=== PATIENT | female | born 1930 | race Caucasian/White ===

== ENCOUNTER 2018-02-07 10:04 | Observation (INO) | payer OTHER, MEDICARE ==
[2018-02-07] MEDS ORDERED: ASPIRIN 81 MG CHEWABLE TAB PO ONE (10:17)
--- NOTE | 2018-02-07 10:38 | EDPHY ---
H & P Time Seen by Provider: 02/07/18 10:17 HPI/ROS: HPI Chest pains. 87-year-old female by private vehicle with her daughter. This patient reports that the night before last she developed chest pain which she describes as across her anterior chest with some radiation to the back and the shoulders. Pain described as a pressure and ache like sensation. She states that it lasted for less than an hour then resolved. She reports that last night at 1: 00 a.m. She had another episode of the pain described as the same and then again at 6:30 a.m. This morning. She denies any previous history of coronary artery disease. She does have a history of hyperlipidemia. She denies other risk factors. ROS: Constitutional: No fever, no chills. No weakness. Eyes: No discharge. No changes in vision. ENT: No sore throat. No nasal congestion or rhinorrhea. Respiratory: No cough. No shortness of breath. Cardiac: As above, no palpitations. Gastrointestinal: No abdominal pain, no vomiting, no diarrhea. Genitourinary: No hematuria. No dysuria or increased frequency with urination. Musculoskeletal: No back pain. No neck pain. No myalgias or arthralgias. Skin: No rashes. Neurological: No headache. No focal weakness or altered sensation. Past medical history: Benign spinal tumor removed in 2012, hip replacement, mastectomy. Social history: Nonsmoker. No alcohol. Here with her daughter. She [place] [facility] [place] [facility] [place] by her daughter. Physical Exam: General Appearance: Alert, no distress. This patient is responding to questions appropriately and in full sentences. This patient appears well- hydrated and well-nourished. Eyes: Pupils equal and round no pallor or injection. No lid edema, erythema or injection. Respiratory: There are no retractions, lungs are clear to auscultation anteriorly with good air movement bilaterally. Cardiovascular: Regular rate and rhythm. No murmur appreciated. Gastrointestinal: Abdomen is soft and nontender, no masses, bowel sounds normal. No focal tenderness at McBurney's point. No Patterson sign. Neurological: Motor sensory function is grossly intact. Cranial nerves are normal. Gait is normal. Skin: Warm and dry, no rashes. Musculoskeletal: Neck is supple and nontender. Extremities are symmetrical. All joints range without pain or impingement. Psychiatric: No agitation. No depression. Database: EKG: EKG time is 10:20 a.m.; EKG shows a narrow complex normal sinus rhythm with a ventricular rate of 82. Low voltage noted. No electrical alternans. Probable left atrial enlargement. The OR, QRS, QT intervals are within normal limits. There are no ST-T wave changes indicative of ischemic or injury pattern. No evidence of right heart strain. Interpreted by me. Imaging: Chest x-ray AP portable; the cardiac mediastinal silhouette is unremarkable. No evidence of infiltrate or pneumothorax. No acute cardiopulmonary disease process noted. Interpreted by me. Procedures: Emergency department course: Triage vital signs reviewed and are normal. She is afebrile. IV placed. She was placed on a monitor. EKG obtained and reviewed by myself. She was given 324 mg of chewed aspirin. She is currently chest pain-free. 11:35 a.m., patient re-evaluated, resting comfortably at this time. Results of diagnostic workup discussed with her and her daughter. Plan for admission to the hospitalist service discussed. All of their questions were answered. They endorse. 11:45 a.m., spoke with hospitalist, patient accepted for admission under the care of Dr. Ema Madrigal. Patient's remaining emergency department course under my care has been uneventful. Patient admitted in stable condition. Differential Diagnosis: The differential diagnosis on this patient includes but is not limited to acute coronary syndrome, pleuritis, costal chondritis, esophageal spasm. This represents a partial list of diagnoses considered. These considerations are based on history, physical exam, past history, reassessment and diagnostic testing. Smoking Status: Never smoked Constitutional: Initial Vital Signs Temperature (C) 36.7 C 02/07/18 10:10 Heart Rate 90 02/07/18 10:10 Respiratory Rate 16 02/07/18 10:10 Blood Pressure 108/72 02/07/18 10:10 O2 Sat (%) 97 02/07/18 10:10 O2 Delivery Mode Room Air Allergies/Adverse Reactions: No Known Allergies Allergy (Unverified 02/07/18 10:09) Home Medications: Medication Instructions Recorded Requip 02/07/18 Medical Decision Making - Diagnostics Imaging Results: Imaging Impressions Chest X-Ray 02/07/18 10:18 Impression: Chest negative for acute abnormality. - Data Points Laboratory Results: Laboratory Results 02/07/18 10:30 02/07/18 10:30 02/07/18 02/07/18 02/07/18 10:40 10:30 10:30 WBC RBC Hgb Hct MCV MCH MCHC RDW Plt Count MPV Neut % (Auto) Lymph % (Auto) [place] % (Auto) Eos % (Auto) Baso % (Auto) Nucleat RBC Rel Count Absolute Neuts (auto) Absolute Lymphs (auto) Absolute Monos (auto) Absolute Eos (auto) Absolute Basos (auto) Absolute Nucleated RBC Immature Gran % Immature Gran # PT 13.2 SEC SEC (12.0-15.0) INR 0.98 (0.83-1.16) APTT 28.9 SEC SEC (23.0-38.0) Sodium 138 mEq/L mEq/L (135-145) Potassium 4.6 mEq/L mEq/L (3.3-5.0) Chloride 105 mEq/L mEq/L (97-110) Carbon Dioxide 25 mEq/l mEq/l (22-31) Anion Gap 8 mEq/L mEq/L (6-14) BUN 18 mg/dL mg/dL (7-23) Creatinine 0.6 mg/dL mg/dL (0.6-1.0) Estimated GFR > 60 Glucose 98 mg/dL mg/dL (70-100) Calcium 9.5 mg/dL mg/dL (8.5-10.4) Total Bilirubin 0.6 mg/dL mg/dL (0.1-1.4) Conjugated Bilirubin 0.2 mg/dL mg/dL (0.0-0.5) Unconjugated Bilirubin 0.4 mg/dL mg/dL (0.0-1.1) AST 24 IU/L IU/L (14-46) ALT 27 IU/L IU/L (9-52) Alkaline Phosphatase 80 IU/L IU/L (38-126) POC Troponin I 0.00 ng/mL ng/mL (0.00-0.08) Total Protein 6.9 g/dL g/dL (6.3-8.2) Albumin 4.2 g/dL g/dL (3.5-5.0) Lipase 94 IU/L IU/L (23-300) 02/07/18 10:30 WBC 7.76 10^3/uL 10^3/uL (3.80-9.50) RBC 4.87 10^6/uL 10^6/uL (4.18-5.33) Hgb 14.4 g/dL g/dL (12.6-16.3) Hct 42.4 % % (38.0-47.0) MCV 87.1 fL fL (81.5-99.8) MCH 29.6 pg pg (27.9-34.1) MCHC 34.0 g/dL g/dL (32.4-36.7) RDW 13.7 % % (11.5-15.2) Plt Count 194 10^3/uL 10^3/uL (150-400) MPV 11.4 fL fL (8.7-11.7) Neut % (Auto) 65.3 % % (39.3-74.2) Lymph % (Auto) 23.2 % % (15.0-45.0) [place] % (Auto) 8.4 % % (4.5-13.0) Eos % (Auto) 2.3 % % (0.6-7.6) Baso % (Auto) 0.4 % % (0.3-1.7) Nucleat RBC Rel Count 0.0 % % (0.0-0.2) Absolute Neuts (auto) 5.07 10^3/uL 10^3/uL (1.70-6.50) Absolute Lymphs (auto) 1.80 10^3/uL 10^3/uL (1.00-3.00) Absolute Monos (auto) 0.65 10^3/uL 10^3/uL (0.30-0.80) Absolute Eos (auto) 0.18 10^3/uL 10^3/uL (0.03-0.40) Absolute Basos (auto) 0.03 10^3/uL 10^3/uL (0.02-0.10) Absolute Nucleated RBC 0.00 10^3/uL 10^3/uL (0-0.01) Immature Gran % 0.4 % % (0.0-1.1) Immature Gran # 0.03 10^3/uL 10^3/uL (0.00-0.10) PT INR APTT Sodium Potassium Chloride Carbon Dioxide Anion Gap BUN Creatinine Estimated GFR Glucose Calcium Total Bilirubin Conjugated Bilirubin Unconjugated Bilirubin AST ALT Alkaline Phosphatase POC Troponin I Total Protein Albumin Lipase Medications Given: Discontinued Medications Aspirin (Aspirin) 324 mg PO EDNOW ONE Stop: 02/07/18 10:18 Last Admin: 02/07/18 10:32 Dose: 324 mg Point of Care Test Results: Chemistry 02/07/18 10:40 POC Troponin I 0.00 ng/mL ng/mL (0.00-0.08) Departure - Departure Disposition: [facility] Inpatient Acute Clinical Impression: Chest pain Stand Alone Forms: Airline Excuse
[2018-02-07 10:45] LABS: PLATELET COUNT 194 10^3/uL (150-400)
--- NOTE | 2018-02-07 11:03 | CPEKG ---
Test Reason : OPEN Blood Pressure : / mmHG Vent. Rate : 082 BPM Atrial Rate : 082 BPM P-R Int : 187 ms QRS Dur : 079 ms QT Int : 380 ms P-R-T Axes : 062 -38 058 degrees QTc Int : 444 ms Sinus rhythm Probable left atrial enlargement Left axis deviation Low voltage, precordial leads Consider anterior infarct Confirmed by Bridgette Delacruz ([id number]) on 02/07/2018 11:02:14 AM Referred By: Confirmed By:Bridgette Delacruz
[2018-02-07 11:11] LABS: INR 0.98 (0.83-1.16); PROTIME(PATIENT) 13.2 SEC (12.0-15.0)
[2018-02-07] MEDS ORDERED: HYDROCODONE/APAP 5/325 TAB PO PRN (13:59)
[2018-02-07] MEDS ORDERED: ACETAMINOPHEN 325 MG TAB PO PRN (13:59)
[2018-02-07] MEDS ORDERED: ONDANSETRON 4 MG/2 ML VIAL IVP PRN (13:59)
[2018-02-07] MEDS ORDERED: ONDANSETRON DISINTEGRATING 4 MG TAB PO PRN (13:59)
--- NOTE | 2018-02-07 14:03 | PDGENHP ---
History and Physical - Chief Complaint chest pain - History of Present Illness 87 yo female with h/o hyperlipidemia presented to ED with 2 days of "pains all over the place in my chest". She describes the pain as sharp and fleeting. Sometimes the pain would radiate around the side and into the shoulder blade. This started 2 nights ago, then occurred twice last night. This was associated with nausea. No diaphoresis or SOB. The pain started at rest, while she was lying down. She is currently chest pain free. She notes doing some increased weight exercises prior to onset of the pain and also trying to change her posture by engaging her muscles differently. In the ED, troponin is negative. EKG is non-ischemic. She is admitted for further evaluation. History Information - Allergies/Home Medication List Allergies/Adverse Reactions: No Known Allergies Allergy (Unverified 02/07/18 10:09) Home Medications: Multivitamins [Multivitamin (*)] 1 tab PO DAILY 02/07/18 [Last Taken 02/06/18 09 :00] rOPINIRole HCL [Ropinirole HCl] 0.5 - 1.5 mg PO QID PRN 02/07/18 [Last Taken 19:30] I have personally reviewed and updated: family history, medical history, social history, surgical history - Past Medical History hyperlipidemia Additional medical history: restless legs - Surgical History Reports: mastectomy Additional surgical history: spinal tumor resection, hip replacement - Family History Positive for: non-pertinent - Social History Smoking Status: Never smoked Alcohol Use: None Drug Use: None Additional social history: Lives independently in a condo Review of Systems Review of Systems: ROS: 10pt was reviewed & negative except for what was stated in HPI & below Physical Exam Physical Exam: Temp Pulse Resp BP Pulse Ox 36.6 C 90 18 112/64 96 02/07/18 13:58 02/07/18 13:58 02/07/18 13:58 02/07/18 13:58 02/07/18 13:58 Constitutional: no apparent distress Eyes: PERRL Ears, Nose, Mouth, Throat: moist mucous membranes Cardiovascular: regular rate and rhythym Respiratory: no respiratory distress, clear to auscultation Gastrointestinal: normoactive bowel sounds, soft, non-tender abdomen Skin: warm Musculoskeletal: full muscle strength Neurologic: AAOx3 Psychiatric: interacting appropriately Lab Data & Imaging Review 02/07/18 10:30 02/07/18 10:30 WBC 7.76 10^3/uL (3.80-9.50) 02/07/18 10:30 RBC 4.87 10^6/uL (4.18-5.33) 02/07/18 10:30 Hgb 14.4 g/dL (12.6-16.3) 02/07/18 10:30 Hct 42.4 % (38.0-47.0) 02/07/18 10:30 MCV 87.1 fL (81.5-99.8) 02/07/18 10:30 MCH 29.6 pg (27.9-34.1) 02/07/18 10:30 MCHC 34.0 g/dL (32.4-36.7) 02/07/18 10:30 RDW 13.7 % (11.5-15.2) 02/07/18 10:30 Plt Count 194 10^3/uL (150-400) 02/07/18 10:30 MPV 11.4 fL (8.7-11.7) 02/07/18 10:30 Neut % (Auto) 65.3 % (39.3-74.2) 02/07/18 10:30 Lymph % (Auto) 23.2 % (15.0-45.0) 02/07/18 10:30 [place] % (Auto) 8.4 % (4.5-13.0) 02/07/18 10:30 Eos % (Auto) 2.3 % (0.6-7.6) 02/07/18 10:30 Baso % (Auto) 0.4 % (0.3-1.7) 02/07/18 10:30 Nucleat RBC Rel Count 0.0 % (0.0-0.2) 02/07/18 10:30 Absolute Neuts (auto) 5.07 10^3/uL (1.70-6.50) 02/07/18 10:30 Absolute Lymphs (auto) 1.80 10^3/uL (1.00-3.00) 02/07/18 10:30 Absolute Monos (auto) 0.65 10^3/uL (0.30-0.80) 02/07/18 10:30 Absolute Eos (auto) 0.18 10^3/uL (0.03-0.40) 02/07/18 10:30 Absolute Basos (auto) 0.03 10^3/uL (0.02-0.10) 02/07/18 10:30 Absolute Nucleated RBC 0.00 10^3/uL (0-0.01) 02/07/18 10:30 Immature Gran % 0.4 % (0.0-1.1) 02/07/18 10:30 Immature Gran # 0.03 10^3/uL (0.00-0.10) 02/07/18 10:30 PT 13.2 SEC (12.0-15.0) 02/07/18 10:30 INR 0.98 (0.83-1.16) 02/07/18 10:30 APTT 28.9 SEC (23.0-38.0) 02/07/18 10:30 Sodium 138 mEq/L (135-145) 02/07/18 10:30 Potassium 4.6 mEq/L (3.3-5.0) 02/07/18 10:30 Chloride 105 mEq/L (97-110) 02/07/18 10:30 Carbon Dioxide 25 mEq/l (22-31) 02/07/18 10:30 Anion Gap 8 mEq/L (6-14) 02/07/18 10:30 BUN 18 mg/dL (7-23) 02/07/18 10:30 Creatinine 0.6 mg/dL (0.6-1.0) 02/07/18 10:30 Estimated GFR > 60 02/07/18 10:30 Glucose 98 mg/dL (70-100) 02/07/18 10:30 Calcium 9.5 mg/dL (8.5-10.4) 02/07/18 10:30 Total Bilirubin 0.6 mg/dL (0.1-1.4) 02/07/18 10:30 Conjugated Bilirubin 0.2 mg/dL (0.0-0.5) 02/07/18 10:30 Unconjugated Bilirubin 0.4 mg/dL (0.0-1.1) 02/07/18 10:30 AST 24 IU/L (14-46) 02/07/18 10:30 ALT 27 IU/L (9-52) 02/07/18 10:30 Alkaline Phosphatase 80 IU/L (38-126) 02/07/18 10:30 POC Troponin I 0.00 ng/mL (0.00-0.08) 02/07/18 10:40 Total Protein 6.9 g/dL (6.3-8.2) 02/07/18 10:30 Albumin 4.2 g/dL (3.5-5.0) 02/07/18 10:30 Lipase 94 IU/L (23-300) 02/07/18 10:30 Visualized and Interpreted Chest x-ray results: Yes Chest X-Ray results: no infiltrate Visualized and Interpreted EKG results: Yes EKG Interpretation: Positive for: normal sinsus rhythm, NS ST wave abnormalities Assessment & Plan Assessment: Chest pain (Acute) - heart score 4 based on story, age and hyperlipidemia. Warrants inpt risk stratification. Unable to walk on treadmill (2 hip replacements, walks with cane and assistance) -trend trop -prn ekg for recurrent cp -check lipid status in am -luis in am (unable to ambulate on treadmill) Restless legs - cont home ropinirole Full code Dispo - obs
[2018-02-07] MEDS ORDERED: PNEUMOC 13-VAL CONJ-DIP CRM/PF 0.5 ML SYR (PREVNAR 13) IM ONE (19:59)
--- NOTE | 2018-02-08 09:52 | ASMTCMCOM ---
CM Note CM Note Notes: Patient admitted with chest pain. She will have a Lexiscan stress test today. She is normally independent and in the process of moving to a new Long Term apartment at the [facility] in [place]. Her daughter Maureen is local and involved. PT recommending outpatient PT. We will need an RX before she discharges. Case Management will follow. Date Signed: 02/08/2018 09:51 AM Electronically Signed By:Yashira Keen RN
[2018-02-08] MEDS ORDERED: REGADENOSON 0.4 MG/5 ML SYR IVP ONE (09:57)
--- NOTE | 2018-02-08 11:49 | CPR ---
DATE OF PROCEDURE: 02/08/2018 PROCEDURE: Lexiscan stress test. CHIEF COMPLAINT: Atypical chest pain. DESCRIPTION OF PROCEDURE: After informed consent, the patient's EKG and exam were normal. She recei pasha adenosine per protocol as well as nuclear tracer. She tolerated it well with just mild lighthead edness. No arrhythmias or other issues. Her exam post test was normal. No wheezing. She was hemod ynamically stable throughout the test. CONCLUSION: Uneventful Lexiscan stress portion of the stress test. Nuclear imaging will be dictated under separate report. /[id number]/MODL
--- NOTE | 2018-02-08 13:31 | ASMTLACE ---
LACE Length of stay for Answers: Less than 1 day current admission Acuity / Level of Answers: No Care: Did the patient have an inpatient admission? Comorbidities - select Answers: Any tumor (including all that apply lymphoma or leukemia) # of Emergency department Answers: 1-2 visits in the last 6 months Score: 3 Date Signed: 02/08/2018 01:31 PM Electronically Signed By:Yashira Keen RN
--- NOTE | 2018-02-08 13:32 | ASMTDCNOTE ---
Case Management Discharge Discharge Order Complete? Answers: Yes Patient to Obtain Answers: Independently Medications Transportation Arranged Answers: Family/Friends Family Notified Answers: Yes Discharge Comments Notes: Discharge home with RX for outpatient PT. Date Signed: 02/08/2018 01:31 PM Electronically Signed By:Yashira Keen RN
[2018-02-08 13:49] VITALS: BP 90/56
--- NOTE | 2018-02-08 14:06 | GDS ---
DISCHARGE DIAGNOSES: 1. Atypical chest pain, likely musculoskeletal. 2. Restless legs syndrome. HISTORY: For details, please see history and physical dated February 07, 2018. In brief, the jamieen mike is an 87-year-old female with a history of restless legs and hyperlipidemia, presented to the emerg ency department with migrating pain throughout her chest wall. Given her age and cardiac risk factor of hyperlipidemia, she is admitted for further evaluation and risk stratification. HOSPITAL COURSE: Patient admitted to the cardiac telemetry unit. Her troponins were negative. Her EKG was nonischemic. We did discuss her hyperlipidemia. Her LDL here is 123. However, she has refu sed statins in the past and continues to refuse statins. She underwent [facility] [place] [facility] nuclear medicine str ess test, given her inability to safely ambulate on a treadmill. This showed no evidence of ischemia or infarct and no wall motion abnormalities with an ejection fraction measured at 90%. On the day o f discharge, she is chest pain free. Her vital signs are stable. She was evaluated by therapy servi kim who recommend outpatient physical therapy. A prescription is provided for this. DISPOSITION: Patient is discharged home in stable condition and will follow up with outpatient physi christy therapy. FOLLOWUP: Dr. Vielka Barajas, primary care. DISCHARGE MEDICATIONS: Please see [facility] for complete outpatient medication list. She will contin ue her home medications as previously prescribed including ropinirole and multivitamins. /[id number]/MODL
--- NOTE | 2018-02-08 15:41 | CPEKG ---
Test Reason : OPEN Blood Pressure : / mmHG Vent. Rate : 083 BPM Atrial Rate : 083 BPM P-R Int : 212 ms QRS Dur : 079 ms QT Int : 380 ms P-R-T Axes : 061 -46 058 degrees QTc Int : 447 ms Sinus rhythm Borderline prolonged [place] interval Probable left atrial enlargement Left anterior fascicular block Low voltage, precordial leads Consider anterior infarct Confirmed by Donny Schmidt ([id number]) on 02/08/2018 3:41:24 PM Referred By: Confirmed By:Donny Schmidt
== END 2018-02-08 14:13 | disposition home or self-care (01) ==
LOC: INTOOBSV 11:45 → F2W 13:50
PROVIDERS: ADMIT Hospitalist; ATTEND Hospitalist
DX: R07.9 Chest pain, unspecified (principal); G25.81 Restless legs syndrome; E78.5 Hyperlipidemia, unspecified; Z96.649 Presence of unspecified artificial hip joint; Z90.13 Acquired absence of bilateral breasts and nipples; Z66 Do not resuscitate; Z23 Encounter for immunization
CPT/HCPCS: 71045; 78451; 93005; 93017; 97110; 97116; 97161; 99285; A9500; G0009; G0378; G8978; G8979; J2785; 84484-PO

== ENCOUNTER 2018-06-10 21:47 | Inpatient (IN) | payer OTHER, MEDICARE ==
[2018-06-10] MEDS ORDERED: ALBUTEROL 3 ML DEYVIAL IH ONE (22:37)
--- NOTE | 2018-06-10 22:39 | EDPHY ---
H & P Stated Complaint: Pneumonia Time Seen by Provider: 06/10/18 22:17 HPI/ROS: Chief Complaint: Cough, chills, pneumonia HPI: 87-year-old woman presenting with several days of cough, chills. Cough is nonproductive. Patient was seen by her primary care physician today and had an outpatient x-ray. X-ray showed bilateral pneumonia. They received a phone call tonight. Patient has been complaining of shortness of breath, no nausea or vomiting. No body aches. She did get a flu shot this year. Is complaining of general malaise and fatigue. ROS: 10 systems were reviewed and were negative except those elements noted in the HPI. PMH: Breast cancer Social History: No smoking, no alcohol, no recreational drug use Family History: non-contributory Physical Exam: Gen: Awake, Alert, No Distress HEENT: Nose: no rhinorrhea Eyes: PERRLA, EOMI Mouth: Moist mucosa Neck: Supple, no JVD Chest: nontender, diffuse expiratory wheeze with mild bilateral basilar crackles Heart: S1, S2 normal, no murmur Abd: Soft, non-tender, no guarding Back: no CVA tenderness, no midline tenderness Ext: no edema, non-tender Skin: no rash Neuro: CN II-XII intact, Sensation grossly intact, Strength 5/5 in bilateral upper and lower extremities - Personal History Current Tetanus/Diphtheria Vaccine: Yes Current Tetanus Diphtheria and Acellular Pertussis (TDAP): Yes - Medical/Surgical History Hx Asthma: No Hx Chronic Respiratory Disease: No Hx Diabetes: No Hx Cardiac Disease: No Hx Renal Disease: No Hx Cirrhosis: No Hx Alcoholism: No Hx HIV/AIDS: No Hx Splenectomy or Spleen Trauma: No Other PMH: benign spinal tumor removed 2012, appendectomy. bilateral hip replacement. masectomy, right foot bunionectomy - Social History Smoking Status: Never smoked Constitutional: Initial Vital Signs Temperature (C) 36.6 C 06/10/18 21:54 Heart Rate 98 06/10/18 21:54 Respiratory Rate 20 06/10/18 21:54 Blood Pressure 77/51 L 06/10/18 21:54 O2 Sat (%) 89 L 06/10/18 21:54 O2 Delivery Mode Nasal Cannula O2 (L/minute) 3 Allergies/Adverse Reactions: No Known Allergies Allergy (Verified 06/10/18 21:52) Home Medications: Medication Instructions Recorded Multivitamins [Multivitamin (*)] 1 tab PO DAILY 02/07/18 rOPINIRole HCL [Ropinirole HCl] 0.5 - 1.5 mg PO QID PRN 02/07/18 Robafen AC Oral Solution 06/10/18 Medical Decision Making - Diagnostics Imaging Results: Impression: Central bronchitis with possible early bronchopneumonia in the lower lungs bilaterally. Study interpreted by Dr. Lopez. ED Course/Re-evaluation: 87-year-old woman presenting with cough and hypoxia. Chest x-ray as an outpatient shows bronchitis with some bilateral lower infiltrates. She is hypoxemic here. Initial blood pressure was low. Repeat is up to 112/79 without any interventions. She is not tachycardic. Initial lactic acid is 1.0. Cultures have been sent. Influenza is pending. Will discuss with hospitalist for admission. - Data Points Laboratory Results: Laboratory Results 06/10/18 22:15 06/10/18 22:15 06/10/18 06/10/18 06/10/18 23:00 22:45 22:15 WBC RBC Hgb Hct MCV MCH MCHC RDW Plt Count MPV Neut % (Auto) Lymph % (Auto) [place] % (Auto) Eos % (Auto) Baso % (Auto) Nucleat RBC Rel Count Absolute Neuts (auto) Absolute Lymphs (auto) Absolute Monos (auto) Absolute Eos (auto) Absolute Basos (auto) Absolute Nucleated RBC Immature Gran % Immature Gran # PT INR APTT VBG Lactic Acid 1.0 mmol/L mmol/L (0.7-2.1) Sodium 131 mEq/L L mEq/L (135-145) Potassium 4.1 mEq/L mEq/L (3.5-5.2) Chloride 99 mEq/L mEq/L (97-110) Carbon Dioxide 20 mEq/l L mEq/l (22-31) Anion Gap 12 mEq/L mEq/L (6-14) BUN 18 mg/dL mg/dL (7-23) Creatinine 0.8 mg/dL mg/dL (0.6-1.0) Estimated GFR > 60 Glucose 113 mg/dL H mg/dL (70-100) Calcium 9.0 mg/dL mg/dL (8.5-10.4) Total Bilirubin 0.8 mg/dL mg/dL (0.1-1.4) Nasal Influenza A PCR Pending Nasal Influenza B PCR Pending 06/10/18 06/10/18 22:15 22:15 WBC 5.27 10^3/uL 10^3/uL (3.80-9.50) RBC 5.14 10^6/uL 10^6/uL (4.18-5.33) Hgb 15.0 g/dL g/dL (12.6-16.3) Hct 45.4 % % (38.0-47.0) MCV 88.3 fL fL (81.5-99.8) MCH 29.2 pg pg (27.9-34.1) MCHC 33.0 g/dL g/dL (32.4-36.7) RDW 13.6 % % (11.5-15.2) Plt Count 190 10^3/uL 10^3/uL (150-400) MPV 11.2 fL fL (8.7-11.7) Neut % (Auto) 57.2 % % (39.3-74.2) Lymph % (Auto) 25.0 % % (15.0-45.0) [place] % (Auto) 14.2 % H % (4.5-13.0) Eos % (Auto) 3.0 % % (0.6-7.6) Baso % (Auto) 0.2 % L % (0.3-1.7) Nucleat RBC Rel Count 0.0 % % (0.0-0.2) Absolute Neuts (auto) 3.01 10^3/uL 10^3/uL (1.70-6.50) Absolute Lymphs (auto) 1.32 10^3/uL 10^3/uL (1.00-3.00) Absolute Monos (auto) 0.75 10^3/uL 10^3/uL (0.30-0.80) Absolute Eos (auto) 0.16 10^3/uL 10^3/uL (0.03-0.40) Absolute Basos (auto) 0.01 10^3/uL L 10^3/uL (0.02-0.10) Absolute Nucleated RBC 0.00 10^3/uL 10^3/uL (0-0.01) Immature Gran % 0.4 % % (0.0-1.1) Immature Gran # 0.02 10^3/uL 10^3/uL (0.00-0.10) PT 12.6 SEC SEC (12.0-15.0) INR 0.98 (0.83-1.16) APTT 32.0 SEC SEC (23.0-38.0) VBG Lactic Acid Sodium Potassium Chloride Carbon Dioxide Anion Gap BUN Creatinine Estimated GFR Glucose Calcium Total Bilirubin Nasal Influenza A PCR Nasal Influenza B PCR Medications Given: Discontinued Medications Albuterol (Proventil Neb) 3 ml IH EDNOW ONE Stop: 06/10/18 22:38 Last Admin: 06/10/18 22:54 Dose: 3 ml Departure - Departure Disposition: [facility] Inpatient Acute Clinical Impression: Pneumonia Condition: Fair Referrals: Vielka Barajas MD [Primary Care Provider] - As per Instructions
[2018-06-10 22:41] LABS: PLATELET COUNT 190 10^3/uL (150-400)
[2018-06-10 22:44] LABS: INR 0.98 (0.83-1.16); PROTIME(PATIENT) 12.6 SEC (12.0-15.0)
[2018-06-10] MEDS ORDERED: NS 1,000 ML IV SCH (23:45)
[2018-06-10] MEDS ORDERED: ONDANSETRON DISINTEGRATING 4 MG TAB PO PRN (23:58)
[2018-06-10] MEDS ORDERED: ACETAMINOPHEN 650 MG SUPP PR PRN (23:58)
[2018-06-10] MEDS ORDERED: ACETAMINOPHEN 325 MG TAB PO PRN (23:58)
[2018-06-10] MEDS ORDERED: ALBUTEROL 3 ML DEYVIAL IH PRN (23:58)
[2018-06-10] MEDS ORDERED: ONDANSETRON 4 MG/2 ML VIAL IVP PRN (23:58)
[2018-06-11] MEDS ORDERED: guaiFENesin/CODEINE PHOS 10 ML UDCUP PO PRN (00:04)
--- NOTE | 2018-06-11 01:09 | PDGENHP ---
History and Physical - Chief Complaint Cough and shortness of breath - History of Present Illness Source-patient provides history appears reliable. EMR was reviewed and case discussed with ED provider. HPI-this is a very pleasant 87-year-old female with a past medical history significant for restless legs, remote history of breast cancer who presents emergency department with complaints of several days of worsening cough and more acutely some shortness of breath. Patient reports she has been having a nonproductive cough for the last 2 or 3 days as well as rhinorrhea. Patient sources some nausea but no vomiting or diarrhea.. In the last 24 hr patient reports that she has had significant coughing fits as well as some shortness of breath which is new. She also notes a barking/seal type cough. She denies any fevers or chills but has been having increasing fatigue and malaise. She denies any myalgias. Patient received her flu vaccine for this season. Patient went to see her PCP earlier in the day. She was diagnosed with acute bronchitis and was prescribed codeine based cough medication with significant improvement in her cough which allowed her to sleep for few hours. Patient now presents with complaints of shortness of breath. She denies any recent travel or calf tenderness or swelling. History Information - Allergies/Home Medication List Allergies/Adverse Reactions: No Known Allergies Allergy (Verified 06/10/18 21:52) Home Medications: Multivitamins [Multivitamin (*)] 1 tab PO DAILY 02/07/18 [Last Taken 02/06/18 09 :00] rOPINIRole HCL [Ropinirole HCl] 0.5 - 1.5 mg PO QID PRN 02/07/18 [Last Taken 19:30] Robafen AC Oral Solution 06/10/18 [Last Taken Unknown] I have personally reviewed and updated: family history, medical history, social history, surgical history - Past Medical History hyperlipidemia Additional medical history: restless legs - Surgical History Reports: mastectomy Additional surgical history: Appy, spinal tumor resection, hip replacement - Family History Positive for: non-pertinent. Negative for: lung disease - Social History Smoking Status: Never smoked Alcohol Use: None Drug Use: None Additional social history: Lives independently in a condo. She uses a cane. Patient has a daughter who lives nearby and is supportive. Cor status-DNR DNI. Review of Systems Review of Systems: ROS: 10pt was reviewed & negative except for what was stated in HPI & below Physical Exam Physical Exam: Temp Pulse Resp BP Pulse Ox 36.6 C 85 20 110/88 H 97 06/10/18 21:54 06/11/18 00:03 06/11/18 00:03 06/11/18 00:03 06/11/18 00:03 Constitutional: no apparent distress, other (Patient appears acutely ill and fatigued but nontoxic. She is resting quietly in the bed awake. NAD.) Eyes: PERRL (Slightly decreased reactivity to light bilaterally but symmetric.) , anicteric sclera, EOMI, scleral injection, other Ears, Nose, Mouth, Throat: moist mucous membranes, other (No nasal discharge.), No poor dentition Cardiovascular: regular rate and rhythym, no murmur, rub, or gallop, pulses symmetric bilaterally, No edema Peripheral Pulses: 1+: dorsalis-pedis (R), dorsalis-pedis (L) Respiratory: no respiratory distress, reduced air movement (Bibasilar.), expiratory wheeze (Right posterior middle lung field), inspiratory crackles, other (Patient with some minimal increased work of breathing with change in position.), No clear to auscultation, No respiratory distress, No rhonchi Gastrointestinal: normoactive bowel sounds, soft, non-tender abdomen, no palpable masses, No guarding, No distension Genitourinary: No no bladder tenderness, No camacho in urethra Skin: warm, normal color, no rashes or abrasions, No rash Musculoskeletal: full muscle strength, normal joint ROM, generalized weakness Neurologic: AAOx3, sensation intact bilaterally, other (Grossly nonfocal.), No facial droop Psychiatric: interacting appropriately, not anxious, No poor judgement Lab Data & Imaging Review 06/10/18 22:15 06/10/18 22:15 WBC 5.27 10^3/uL (3.80-9.50) 06/10/18 22:15 RBC 5.14 10^6/uL (4.18-5.33) 06/10/18 22:15 Hgb 15.0 g/dL (12.6-16.3) 06/10/18 22:15 Hct 45.4 % (38.0-47.0) 06/10/18 22:15 MCV 88.3 fL (81.5-99.8) 06/10/18 22:15 MCH 29.2 pg (27.9-34.1) 06/10/18 22:15 MCHC 33.0 g/dL (32.4-36.7) 06/10/18 22:15 RDW 13.6 % (11.5-15.2) 06/10/18 22:15 Plt Count 190 10^3/uL (150-400) 06/10/18 22:15 MPV 11.2 fL (8.7-11.7) 06/10/18 22:15 Neut % (Auto) 57.2 % (39.3-74.2) 06/10/18 22:15 Lymph % (Auto) 25.0 % (15.0-45.0) 06/10/18 22:15 [place] % (Auto) 14.2 % (4.5-13.0) H 06/10/18 22:15 Eos % (Auto) 3.0 % (0.6-7.6) 06/10/18 22:15 Baso % (Auto) 0.2 % (0.3-1.7) L 06/10/18 22:15 Nucleat RBC Rel Count 0.0 % (0.0-0.2) 06/10/18 22:15 Absolute Neuts (auto) 3.01 10^3/uL (1.70-6.50) 06/10/18 22:15 Absolute Lymphs (auto) 1.32 10^3/uL (1.00-3.00) 06/10/18 22:15 Absolute Monos (auto) 0.75 10^3/uL (0.30-0.80) 06/10/18 22:15 Absolute Eos (auto) 0.16 10^3/uL (0.03-0.40) 06/10/18 22:15 Absolute Basos (auto) 0.01 10^3/uL (0.02-0.10) L 06/10/18 22:15 Absolute Nucleated RBC 0.00 10^3/uL (0-0.01) 06/10/18 22:15 Immature Gran % 0.4 % (0.0-1.1) 06/10/18 22:15 Immature Gran # 0.02 10^3/uL (0.00-0.10) 06/10/18 22:15 PT 12.6 SEC (12.0-15.0) 06/10/18 22:15 INR 0.98 (0.83-1.16) 06/10/18 22:15 APTT 32.0 SEC (23.0-38.0) 06/10/18 22:15 VBG Lactic Acid 1.0 mmol/L (0.7-2.1) 06/10/18 22:45 Sodium 131 mEq/L (135-145) L 06/10/18 22:15 Potassium 4.1 mEq/L (3.5-5.2) 06/10/18 22:15 Chloride 99 mEq/L (97-110) 06/10/18 22:15 Carbon Dioxide 20 mEq/l (22-31) L 06/10/18 22:15 Anion Gap 12 mEq/L (6-14) 06/10/18 22:15 BUN 18 mg/dL (7-23) 06/10/18 22:15 Creatinine 0.8 mg/dL (0.6-1.0) 06/10/18 22:15 Estimated GFR > 60 06/10/18 22:15 Glucose 113 mg/dL (70-100) H 06/10/18 22:15 Calcium 9.0 mg/dL (8.5-10.4) 06/10/18 22:15 Total Bilirubin 0.8 mg/dL (0.1-1.4) 06/10/18 22:15 Nasal Influenza A PCR NEGATIVE FOR FLU A (NEGATIVE) 06/10/18 23:00 Nasal Influenza B PCR NEGATIVE FOR FLU B (NEGATIVE) 06/10/18 23:00 Imaging Review: PA and lateral chest. Clinical History: RESPIRATORY INFECTION Comparison Study: February 07, 2018. Findings: Perihilar bronchial wall thickening is present bilaterally, associated with increased markings extending into the lower lobes bilaterally potentially related to early bronchopneumonia. Calcified granuloma in the right midlung is unchanged.. Cardiac silhouette is normal in size. No pleural effusion.. Impression: Central bronchitis with possible early bronchopneumonia in the lower lungs bilaterally. Dictated By: Fabio Lopez MD Chest X-Ray results: normal heart size, infiltrate (Possible early infiltrates representing bronchopneumonia.), other (No effusion.) Assessment & Plan Assessment: this is a very pleasant 87-year-old female with a past medical history significant for restless legs, remote history of breast cancer who presents emergency department with complaints of several days of worsening cough and more acutely some shortness of breath #RSV bronchitis - respiratory some PCR positive for RSV. Patient is unsure of any sick contacts. Supportive care at this time. Continue patient's quite profound and a.c. P.r.n. As well as additional cough medications. #Hypoxia - patient requiring some supplemental O2. Will continue to provide supportive care and attempt to titrate down tomorrow. Patient reports that if needed she would prefer to go home with oxygen if she is feeling well enough. #Infiltrate on x-ray - secondary to viral RSV. Hold off on antibiotics. Patient is without any leukocytosis, normal lactate. Will monitor closely for any signs of decompensation. #Hyponatremia - secondary to hypovolemia. Continue IV fluid hydration. Repeat BMP in the morning if continues to decline will obtain additional studies including urine studies. #Sepsis without organ dysfunction due to viral source. Plan as above. #Restless leg syndrome - resume patient's Requip. FEN - IV fluids overnight. Electrolyte monitoring replacement if needed. Diet as tolerated. PPX-SCDs. Anticoagulation of patient's stay additional day. Cor status-DNR DNI Disposition-patient admitted to observation status on the [facility] floor for additional monitoring therapy with oxygen.
[2018-06-11] MEDS: BENZONATATE 100 MG CAP PO PRN ×3 (02:51→20:07)
[2018-06-11] MEDS: ENOXAPARIN 40 MG/0.4 ML SYR SC SCH (09:25)
--- NOTE | 2018-06-11 13:20 | HOSPPROG ---
Hospitalist Progress Note Assessment/Plan: Ryan is a 87-year-old female with a past medical history significant for restless legs, remote history of breast cancer who presents emergency department with complaints of several days of worsening cough and more acutely some shortness of breath. It was noted she has RSV. Reviewed her care w Dr Young who admitted her last night. #RSV bronchitis -supportive care w cough medications -cough is quite severe, may need steroids #Hypoxemic respiratory failure due to the above -oxygen levels dropped quickly earlier today #Infiltrate on x-ray - secondary to viral RSV. #Hyponatremia -hypovolemic -mild #Sepsis without organ dysfunction due to viral source. #Restless leg syndrome - resume patient's Requip. #plan: continue supportive care, added Mucinex and duonebs to help loosen cough. >30 minutes f/u care. Subjective: Ryan is feeling better today than yesterday. Objective: Vital Signs Temp Pulse Resp BP Pulse Ox 36.7 C 103 H 16 115/83 H 97 06/11/18 12:00 06/11/18 12:00 06/11/18 12:00 06/11/18 12:00 06/11/18 12:00 Laboratory Results 06/11/18 08:39 PT 12.6 SEC (12.0-15.0) 06/10/18 22:15 INR 0.98 (0.83-1.16) 06/10/18 22:15 - Physical Exam Constitutional: appears nourished Eyes: PERRL Ears, Nose, Mouth, Throat: hearing normal Cardiovascular: regular rate and rhythym Respiratory: expiratory wheeze, rhonchi (few scattered), No no respiratory distress (increase coughing any time she talks) Gastrointestinal: normoactive bowel sounds Skin: warm, No normal color (flushed from coughing) Neurologic: AAOx3 Psychiatric: interacting appropriately ICD10 Worksheet Patient Problems: Problems Problem Status Onset Pneumonia Acute Chest pain Acute
[2018-06-11] MEDS: guaiFENesin 600 MG TAB.ER PO SCH ×2 (13:58→19:58)
[2018-06-11] MEDS: CODEINE/APAP 12MG/120MG/5 ML UDL PO PRN (13:58)
--- NOTE | 2018-06-11 15:26 | PDMN ---
Medical Necessity Medical necessity: Change to IP, as of 06/11/18, per MD & MCG M-160; los >2 mn for eval/tx of sepsis with RSV & hypoxia (O2 sats in 70s on RA); requiring further monitoring & respiratory supportive care; comorbid advanced age
--- NOTE | 2018-06-11 16:09 | ASMTCMCOM ---
CM Note CM Note Notes: Reviewed chart, pt admitted for hypoxia. She lives alone in a correction residence in [place] called [facility], in there [place]. Dc needs unclear, TRISTIAN w/f. DC Plan: TBD Date Signed: 06/11/2018 04:09 PM Electronically Signed By:Griselda Parkinson RN
[2018-06-11] MEDS: IPRATROPIUM/ALBUTEROL 3 ML DEYVIAL IH SCH (17:52)
[2018-06-12] MEDS: IPRATROPIUM/ALBUTEROL 3 ML DEYVIAL IH SCH ×5 (00:22→22:59)
[2018-06-12] MEDS: CODEINE/APAP 12MG/120MG/5 ML UDL PO PRN ×2 (02:15→22:14)
[2018-06-12] MEDS: ENOXAPARIN 40 MG/0.4 ML SYR SC SCH (08:06)
[2018-06-12] MEDS: MULTIVITAMINS 1 EACH TAB PO SCH (08:06)
[2018-06-12] MEDS: guaiFENesin 600 MG TAB.ER PO SCH ×2 (08:06→20:42)
--- NOTE | 2018-06-12 11:49 | HOSPPROG ---
Hospitalist Progress Note Assessment/Plan: Ryan is a 87-year-old female with a past medical history significant for restless legs, remote history of breast cancer who presents emergency department with complaints of several days of worsening cough and more acutely some shortness of breath. It was noted she has RSV. #RSV bronchitis -supportive care w cough medications -cough is quite severe, may need steroids -she wants to see if she gets better and wants to hold off on steroids #Hypoxemic respiratory failure due to the above -O2 as needed #Infiltrate on x-ray - secondary to viral RSV. -may need an antibiotic, will monitor #Hyponatremia -hypovolemic -mild #Sepsis without organ dysfunction due to viral source. #Restless leg syndrome - resume patient's Requip. #plan: continue supportive care, will ask nursing staff to check oxygen levels on room air Subjective: Ryan says she is feeling overall better, but has frequent uncontrolled bouts of coughing Objective: Vital Signs Temp Pulse Resp BP Pulse Ox 36.6 C 80 16 108/67 96 06/12/18 08:00 06/12/18 09:28 06/12/18 09:28 06/12/18 08:00 06/12/18 09:28 Laboratory Results 06/11/18 08:39 06/11/18 06/12/18 06/13/18 05:59 05:59 05:59 Intake Total 1068 Balance 1068 PT 12.6 SEC (12.0-15.0) 06/10/18 22:15 INR 0.98 (0.83-1.16) 06/10/18 22:15 - Physical Exam Constitutional: no apparent distress, appears nourished, not in pain Eyes: PERRL Ears, Nose, Mouth, Throat: hearing normal Cardiovascular: regular rate and rhythym Respiratory: no respiratory distress, expiratory wheeze, rhonchi (scattered throughout, coughing frequently w speaking) Skin: warm Musculoskeletal: full muscle strength Neurologic: AAOx3 Psychiatric: interacting appropriately ICD10 Worksheet Patient Problems: Problems Problem Status Onset Pneumonia Acute Chest pain Acute
--- NOTE | 2018-06-12 15:20 | ASMTCMCOM ---
CM Note CM Note Notes: Spoke w/DRAWING PRESS OPERATOR, pt ambulates well on her own, no therapies ordered. Ancticipate she will return to her AL when medically stable. CM available for any changes. DC Plan: Independent Date Signed: 06/12/2018 03:20 PM Electronically Signed By:Griselda Parkinson RN
[2018-06-13] MEDS: IPRATROPIUM/ALBUTEROL 3 ML DEYVIAL IH SCH ×4 (05:52→21:53)
--- NOTE | 2018-06-13 08:24 | HOSPPROG ---
Hospitalist Progress Note Assessment/Plan: Ryan is a 87-year-old female with a past medical history significant for restless legs, remote history of breast cancer who presents emergency department with complaints of several days of worsening cough and more acutely some shortness of breath. It was noted she has RSV. #RSV bronchitis -supportive care w cough medications -cough is quite severe -she doesn't want steroids, she would benefit from this -will give her azithromycin and see how she does #Hypoxemic respiratory failure due to the above -on room air #Infiltrate on x-ray - secondary to viral RSV. #Hyponatremia -hypovolemic -mild #Sepsis without organ dysfunction due to viral source. #Restless leg syndrome - resume patient's Requip. #plan: Ryan wants to go home badly, says she is feeling better and that the cough is looser. Will recheck on her this afternoon and if stable; will dc. Called her daughter and updated her. Subjective: Ryan is not sleeping well in the hospital bed, overall is feeling much better. Objective: Vital Signs Temp Pulse Resp BP Pulse Ox 36.7 C 84 18 154/79 H 92 06/13/18 00:00 06/13/18 05:53 06/13/18 05:53 06/13/18 00:00 06/13/18 05:53 Laboratory Results 06/11/18 08:39 06/12/18 06/13/18 06/14/18 05:59 05:59 05:59 Intake Total 1068 900 Balance 1068 900 PT 12.6 SEC (12.0-15.0) 06/10/18 22:15 INR 0.98 (0.83-1.16) 06/10/18 22:15 - Physical Exam Constitutional: appears nourished, not in pain Eyes: PERRL Ears, Nose, Mouth, Throat: hearing normal Cardiovascular: regular rate and rhythym Respiratory: reduced air movement, bronchial breath sounds, other (loose coughing and frequent bout) Skin: warm Musculoskeletal: generalized weakness Neurologic: AAOx3 Psychiatric: interacting appropriately ICD10 Worksheet Patient Problems: Problems Problem Status Onset Pneumonia Acute Chest pain Acute
[2018-06-13] MEDS: ENOXAPARIN 40 MG/0.4 ML SYR SC SCH (08:45)
[2018-06-13] MEDS: MULTIVITAMINS 1 EACH TAB PO SCH (08:45)
[2018-06-13] MEDS: guaiFENesin 600 MG TAB.ER PO SCH ×2 (08:45→20:21)
[2018-06-13] MEDS: BENZONATATE 100 MG CAP PO PRN (08:46)
[2018-06-13] MEDS: predniSONE 20 MG TAB PO SCH ×2 (11:26→11:27)
[2018-06-13] MEDS ORDERED: AZITHROMYCIN 250 MG TAB PO ONE (11:54)
[2018-06-13] MEDS: CODEINE/APAP 12MG/120MG/5 ML UDL PO PRN (21:37)
[2018-06-14] MEDS: IPRATROPIUM/ALBUTEROL 3 ML DEYVIAL IH SCH ×4 (05:48→22:05)
[2018-06-14] MEDS: AZITHROMYCIN 250 MG TAB PO SCH (07:28)
[2018-06-14] MEDS: guaiFENesin 600 MG TAB.ER PO SCH ×2 (07:28→20:24)
[2018-06-14] MEDS: ENOXAPARIN 40 MG/0.4 ML SYR SC SCH (07:29)
[2018-06-14] MEDS: BENZONATATE 100 MG CAP PO PRN (07:29)
[2018-06-14] MEDS: MULTIVITAMINS 1 EACH TAB PO SCH (07:29)
--- NOTE | 2018-06-14 11:22 | HOSPPROG ---
Hospitalist Progress Note Assessment/Plan: Ryan is a 87-year-old female with a past medical history significant for restless legs, remote history of breast cancer who presents emergency department with complaints of several days of worsening cough and more acutely some shortness of breath. It was noted she has RSV. #RSV bronchitis -supportive care w cough medications -cough is quite severe -very slow to improve -add low dose steroids today (she has been resistant to this - has had them in the past) -Azithromycin added on 06/13 #Hypoxemic respiratory failure due to the above -on room air yesterday, now requiring O2 -recheck chest x ray todya #Infiltrate on x-ray - secondary to viral RSV. #Hyponatremia -hypovolemic -mild #Sepsis without organ dysfunction due to viral source. #Restless leg syndrome - resume patient's Requip. #plan: Ryan is coughing frequently but starting to loosen a bit, will add steroids, cont abx, and see if she improves. Will get a chest x ray to r/o any developing pna. Updated her daughter, Maureen, on plan of care. Subjective: Ryan is tired from coughing. Objective: Vital Signs Temp Pulse Resp BP Pulse Ox 36.3 C 94 18 126/83 H 92 06/14/18 07:04 06/14/18 10:08 06/14/18 10:08 06/14/18 07:04 06/14/18 10:08 Laboratory Results 06/11/18 08:39 06/13/18 06/14/18 06/15/18 05:59 05:59 05:59 Intake Total 900 1250 1500 Output Total 650 Balance 900 1250 850 PT 12.6 SEC (12.0-15.0) 06/10/18 22:15 INR 0.98 (0.83-1.16) 06/10/18 22:15 - Physical Exam Constitutional: appears nourished Eyes: PERRL Ears, Nose, Mouth, Throat: hearing normal Cardiovascular: regular rate and rhythym Respiratory: no respiratory distress, bronchial breath sounds, rhonchi Skin: warm Musculoskeletal: full muscle strength Neurologic: AAOx3 Psychiatric: interacting appropriately ICD10 Worksheet Patient Problems: Problems Problem Status Onset Chest pain Acute Pneumonia Acute
[2018-06-14] MEDS: predniSONE 20 MG TAB PO SCH (12:23)
--- NOTE | 2018-06-14 15:49 | ASMTCMCOM ---
CM Note CM Note Notes: Spoke with hospitalist who requested PT/OT evals to make sure is ok to discharge home independently, likely tomorrow with home O2 for the first time. CM to follow. D/C Plan: [facility] Independent Date Signed: 06/14/2018 03:48 PM Electronically Signed By:Tabatha Sanon
[2018-06-14] MEDS: CODEINE/APAP 12MG/120MG/5 ML UDL PO PRN (21:22)
[2018-06-15] MEDS: IPRATROPIUM/ALBUTEROL 3 ML DEYVIAL IH SCH ×3 (05:16→17:19)
[2018-06-15] MEDS: MULTIVITAMINS 1 EACH TAB PO SCH (09:03)
[2018-06-15] MEDS: AZITHROMYCIN 250 MG TAB PO SCH (09:03)
[2018-06-15] MEDS: guaiFENesin 600 MG TAB.ER PO SCH ×2 (09:03→20:00)
[2018-06-15] MEDS: predniSONE 20 MG TAB PO SCH (09:03)
[2018-06-15] MEDS: ENOXAPARIN 40 MG/0.4 ML SYR SC SCH (09:04)
--- NOTE | 2018-06-15 12:20 | HOSPPROG ---
Hospitalist Progress Note Assessment/Plan: # RSV bronchitis - supportive care, pred, nebs # acute hypoxic resp failure - azith started, continue for 5 days # hypoNa - better # sepsis - d/t RSV # RLS - requip Subjective: patient still feels weak; discussed with her daughter Maureen Objective: Vital Signs Temp Pulse Resp BP Pulse Ox 36.4 C 99 16 98/68 L 88 L 06/15/18 07:54 06/15/18 07:54 06/15/18 07:54 06/15/18 07:54 06/15/18 11:58 Laboratory Results 06/11/18 08:39 06/14/18 06/15/18 06/16/18 05:59 05:59 05:59 Intake Total 1250 2150 Output Total 3025 Balance 1250 -875 PT 12.6 SEC (12.0-15.0) 06/10/18 22:15 INR 0.98 (0.83-1.16) 06/10/18 22:15 chart reviewed CXR personally reviewed - Physical Exam Constitutional: no apparent distress, appears nourished Cardiovascular: regular rate and rhythym, no murmur, rub, or gallop Respiratory: expiratory wheeze (ongoich, diffuse), respiratory distress (mild), No inspiratory crackles, No bronchial breath sounds Gastrointestinal: normoactive bowel sounds, soft, non-tender abdomen, No guarding, No rebound ICD10 Worksheet Patient Problems: Problems Problem Status Onset Pneumonia Acute Chest pain Acute
--- NOTE | 2018-06-15 15:02 | ASMTCMCOM ---
CM Note CM Note Notes: Spoke with pt in the room and with hospitalist. Pt is agreeable to PT/OT with [facility] who has accepted her as she will have new oxygen. Address and phone number confirmed. [facility] notified that she will likely discharge tomorrow. CM to follow. D/C Plan: [facility] PT/OT Date Signed: 06/15/2018 03:02 PM Electronically Signed By:Tabatha Sanon
[2018-06-15] MEDS: CODEINE/APAP 12MG/120MG/5 ML UDL PO PRN (20:05)
[2018-06-15] MEDS: BENZONATATE 100 MG CAP PO PRN (20:05)
[2018-06-16] MEDS: IPRATROPIUM/ALBUTEROL 3 ML DEYVIAL IH SCH ×3 (04:17→10:15)
[2018-06-16 08:35] VITALS: BP 129/85
[2018-06-16] MEDS: AZITHROMYCIN 250 MG TAB PO SCH (08:59)
[2018-06-16] MEDS: predniSONE 20 MG TAB PO SCH (08:59)
[2018-06-16] MEDS: guaiFENesin 600 MG TAB.ER PO SCH (08:59)
[2018-06-16] MEDS: ENOXAPARIN 40 MG/0.4 ML SYR SC SCH (08:59)
[2018-06-16] MEDS: MULTIVITAMINS 1 EACH TAB PO SCH (08:59)
--- NOTE | 2018-06-16 09:35 | PDIAF ---
- Diagnosis Diagnosis: Bronchitis Code Status: Do Not Resuscitate - Medication Management Discharge Medications: electronically signed and located in the Home Medication List. - Orders Services needed: Registered Nurse, Physical Therapy, Occupational Therapy Isolation Type: Contact Isolation, Droplet Isolation Diet Recommendation: no restrictions on diet - Follow Up Care Current Providers and Referrals: Vielka Barajas MD [Primary Care Provider] - As per Instructions
--- NOTE | 2018-06-16 09:56 | ASMTDCNOTE ---
Case Management Discharge Discharge Order Complete? Answers: Yes Patient to Obtain Answers: via Family Medications Transportation Arranged Answers: Family/Friends Transport will Pick (Date 06/16/2018 01:00 PM & Time) Faxed Final Orders Answers: Yes Agency/Facility Transfer Answers: Yes Report Printed & Faxed to Receiving Agency Family Notified Answers: Yes Notes: by pt. Discharge Comments Notes: Spoke with pt in the room and with hospitalist and RN. Pt to discharge today with RN/PT/OT from [facility] and they have been updated. Pt aware that [facility] RN will be meeting her tomorrow in the evening. Pt is discharging with new home O2. Pt's daughter not available for quill picking machine operator until 13:00. Pt declined MoW. No further CM needs noted at this time. Date Signed: 06/16/2018 09:55 AM Electronically Signed By:Tabatha Sanon
--- NOTE | 2018-06-16 09:59 | ASDISCHSUM ---
Discharge Information Plan Status:Home with Home Health Medically Cleared to Leave:06/16/2018 Discharge Date:06/16/2018 CM D/C Disposition:Home Health Service ADT D/C Disposition:Home Health Service Projected Discharge Date:06/15/2018 11:00 AM Transportation at D/C:Family Discharge Delay Reason: Follow-Up Date:06/15/2018 11:00 AM Discharge Slot: Final Diagnosis:RSV, Pneumonia Placement Information Referral Type:*Home Health Care Services Referral ID:[id number] Provider Name:[facility] Address 1:[address] [address] Address 2: City:[place] Selection Factors: State:[place] Patient Contact Information Contact Name:THAD Relationship:Daughter Address: Work Phone: City: [facility] Phone: State/Zip Code: Email: Financial Information Financial Class:Medicare Primary Plan Desc:MEDICARE INPATIENT Primary Plan Number:[id number] Secondary Plan Desc:[employer]/MDR SUPPLEMENT Secondary Plan Number:[id number] Assessment Information LACE LACE Length of stay for Answers: 4-6 days current admission Acuity / Level of Answers: Yes Care: Did the patient have an inpatient admission? Comorbidities - select Answers: Any tumor (including all that apply lymphoma or leukemia) # of Emergency department Answers: 1-2 visits in the last 6 months Score: 10 Date Signed: 06/16/2018 09:58 AM Electronically Signed By:Tabatha Sanon [facility] CM Progress Note CM Note CM Note Notes: Reviewed chart, pt admitted for hypoxia. She lives alone in a correction residence in [facility], in there [place]. Dc needs unclear, CM w/f. DC Plan: TBD Date Signed: 06/11/2018 04:09 PM Electronically Signed By:Griselda Parkinson RN BC CM Progress Note CM Note CM Note Notes: Spoke w/MARIONETTE PERFORMER, pt ambulates well on her own, no therapies ordered. Ancticipate she will return to her AL when medically stable. CM available for any changes. DC Plan: Independent Date Signed: 06/12/2018 03:20 PM Electronically Signed By:Griselda Parkinson RN BC CM Progress Note CM Note CM Note Notes: Spoke with hospitalist who requested PT/OT evals to make sure is ok to discharge home independently, likely tomorrow with home O2 for the first time. CM to follow. D/C Plan: [facility] v Independent Date Signed: 06/14/2018 03:48 PM Electronically Signed By:Tabatha Sanon BC CM Progress Note CM Note CM Note Notes: Spoke with pt in the room and with hospitalist. Pt is agreeable to PT/OT with [facility] who has accepted her as she will have new oxygen. Address and phone number confirmed. [facility] notified that she will likely discharge tomorrow. CM to follow. D/C Plan: [facility] PT/OT Date Signed: 06/15/2018 03:02 PM Electronically Signed By:Tabatha Sanon Case Management Discharge Plan Note Case Management Discharge Discharge Order Complete? Answers: Yes Patient to Obtain Answers: via Family Medications Transportation Arranged Answers: Family/Friends Transport will Pick (Date 06/16/2018 01:00 PM & Time) Faxed Final Orders Answers: Yes Agency/Facility Transfer Answers: Yes Report Printed & Faxed to Receiving Agency Family Notified Answers: Yes Notes: by pt. Discharge Comments Notes: Spoke with pt in the room and with hospitalist and RN. Pt to discharge today with RN/PT/OT from [facility] and they have been updated. Pt aware that [facility] RN will be meeting her tomorrow in the evening. Pt is discharging with new home O2. Pt's daughter not available for lease picker until 13:00. Pt declined MoW. No further CM needs noted at this time. Date Signed: 06/16/2018 09:55 AM Electronically Signed By:Tabatha Sanon Intervention Information Intervention Type:*IM-Signed Date of Service:06/15/2018 11:13 AM Patient Type:Inpatient Staff Member:Josy Paniagua Hours: Discipline: Severity: Comment:
--- NOTE | 2018-06-16 10:12 | GDS ---
[f rep st] DISCHARGE SUMMARY ALL DIAGNOSES: 1. Respiratory syncytial virus bronchitis. 2. Acute hypoxic respiratory failure. 3. Hyponatremia. 4. Sepsis due to respiratory syncytial virus. 5. Restless legs syndrome. HOSPITAL COURSE: This is an 87-year-old female, admitted with shortness of breath. She was found to have RSV. She had significant wheezing. She was also hypoxic due to this. Given the small infiltr ate seen on chest x-ray, she was given a course of azithromycin. The day of discharge, she is feelin g much better, much less short of breath. Currently trialing her on room air, she desaturates. She will be discharged with home oxygen. Otherwise, she will get an additional 1 day of azithromycin, ad ditional 1 day of prednisone. I have also given her a prescription for an inhaler. DISPOSITION: She is discharged home with her daughter with [facility] home care. BILLING: I spent more than 30 minutes on the day of discharge coordinating care. /[id number]/MODL
--- NOTE | 2018-06-16 11:57 | PDHOMEO2F ---
Home Oxygen Face to Face Home Orders: I certify that a physician or a nurse practitioner or physician's internal medicine physician assistant has had a [id number] encounter with this patient on the date of this order due to the diagnosis listed, which relates to the primary reason the patient requires home oxygen. Alternative treatments have been tried, or considered, and deemed ineffective. It is anticipated that supplemental oxygen will result in improvement with treatment. Home oxygen qualifying diagnosis: RSV bronchitis SpO2 on room air (%): 87 Frequency of home oxygen needed: continuous Home oxygen liters per minute: 2 Home oxygen delivery device: nasal cannula Concentrator: Yes E-tanks for mobility and back up: Yes If ordering portable O2, is the patient mobile in the home?: Yes I certify that, based on these findings, the home oxygen is medically necessary for this patient for the following length of time. Length of time home oxygen needed: 1 month
== END 2018-06-16 15:08 | disposition home health service (06) | DRG 871 ==
LOC: F3E 06-11 05:24 → OBSVTOIN 06-11 08:18
PROVIDERS: ADMIT Family Medicine; ATTEND Family Medicine
DX: A41.89 Other specified sepsis (principal); J96.01 Acute respiratory failure with hypoxia; E87.1 Hypo-osmolality and hyponatremia; B97.4 Respiratory syncytial virus as the cause of diseases classified elsewhere; J20.5 Acute bronchitis due to respiratory syncytial virus; G25.81 Restless legs syndrome; Z85.3 Personal history of malignant neoplasm of breast; Z66 Do not resuscitate
CPT/HCPCS: 97161-GP; 97165-GO; 97530-GO; J1650; J7512; J7613

== ENCOUNTER → 2018-06-10 | Outpatient (CLI) | payer OTHER, MEDICARE | LOC: GIMAGING 12:55 | PROVIDERS: ATTEND Internal Medicine | DX: J40 Bronchitis, not specified as acute or chronic (principal) | CPT/HCPCS: 71046-PO ==